=== PATIENT | female | born 1960 | race Two or more races ===

== ENCOUNTER 2020-05-15 14:27 | Emergency (ER) | payer OTHER ==
[~2020-05-15] VITALS: Ht 172.7 cm; Wt 79.4 kg
[2020-05-15] MEDS ORDERED: SODIUM CHLORIDE 0.9% 1000ML 1,000 ML IV STA (14:34)
[2020-05-15] MEDS ORDERED: ONDANSETRON HCL INJ 2MG/ML 2ML 2 MG/ML VIAL IV STA (14:34)
[2020-05-15] MEDS ORDERED: KETOROLAC TROMETHAMINE 30 MG/ML VIAL IV STA (14:34)
[2020-05-15 14:59] LABS: BASOPHILS % 0.4 % (0.0-1.0); EOSINOPHILS # (AUTO) 0.1 (0.0-0.4); EOSINOPHILS % 1.5 % (0.0-6.0); HEMATOCRIT 38.8 % (34.2-44.1); HEMOGLOBIN 12.8 g/dL (12.0-16.0); LYMPHOCYTES # (AUTO) 2.8 (1.0-3.2); LYMPHOCYTES % 41.1 % (18.0-39.1); MEAN CORPUSCULAR HEMOGLOBIN 27.1 pg (28-32); MEAN CORPUSCULAR VOLUME 82.2 fL (81-99); MONOCYTES # (AUTO) 0.4 (0.2-0.8); MONOCYTES % 6.5 % (4.4-11.3); NEUTROPHILS # (AUTO) 3.4 (2.1-6.9); NEUTROPHILS % 50.4 % (38.7-80.0); PLATELET COUNT 236 x10e3/uL (140-360); RED BLOOD COUNT 4.72 x10e6/uL (3.6-5.1); RED CELL DISTRIBUTION WIDTH 13.1 % (11.7-14.4)
[2020-05-15 15:05] LABS: CLARITY,URINE HAZY (CLEAR); COLOR,URINE YELLOW (YELLOW); KETONES,URINE TRACE (NEGATIVE); LEUKOCYTE ESTERASE ,URINE NEGATIVE (NEGATIVE); NITRITE,URINE NEGATIVE (NEGATIVE); PROTEIN,URINE DIPSTICK NEGATIVE (NEGATIVE); URINE UROBILINOGEN 0.2 mg/dL (0.2 - 1)
[2020-05-15] MEDS ORDERED: DIATRIZOATE MEGL/DIATRIZOA SOD 30 ML BTL PO ONE (15:05)
[2020-05-15 15:06] LABS: BILIRUBIN,URINE NEGATIVE (NEGATIVE); INR 0.96; PROTHROMBIN TIME 13.3 seconds (11.9-14.5)
[2020-05-15 15:07] LABS: PARTIAL THROMBOPLASTIN TIME 29.2 seconds (23.8-35.5)
[2020-05-15 15:08] LABS: BACTERIA,URINE FEW /HPF; EPITHELIAL CELLS,URINE FEW /LPF; RBC,URINE 0-5 /HPF (0-5); WBC,URINE (MAN) 0-5 /HPF (0-5)
[2020-05-15 15:15] LABS: ALANINE AMINOTRANSFERASE 15 IU/L (0-55); ALBUMIN 3.6 g/dL (3.5-5.0); ALBUMIN/GLOBULIN RATIO 1.1 (0.8-2.0); ALKALINE PHOSPHATASE 47 IU/L (40-150); ANION GAP 11.2 mmol/L (8-16); BLOOD UREA NITROGEN 16 mg/dL (7-26); BUN/CREATININE RATIO 22 (6-25); CALCIUM 8.7 mg/dL (8.4-10.2); CARBON DIOXIDE 25 mmol/L (22-29); CHLORIDE 105 mmol/L (98-107); CREATINE KINASE 99 IU/L (29-168); CREATININE, SERUM 0.73 mg/dL (0.57-1.11); EST GLOMERULAR FILTRATION RATE > 60 ML/MIN (60-); GLUCOSE 171 mg/dL (74-118); LIPASE 40 U/L (8-78); POTASSIUM 4.2 mmol/L (3.5-5.1); SODIUM 137 mmol/L (136-145)
--- NOTE | 2020-05-15 16:08 | Emergency Department Note ---
History of Present Illnes History of Present Illness Chief Complaint: Abdominal Complaints History of Present Illness This is a 59 year old female PATIENT IN FROM HOME WITH COMPLAINTS OF LEFT FLANK AND LEFT LOWER ABDOMINAL PAIN X 3 DAYS, SHORTNESS OF BREATH STARTING TODAY. PATIENT WITH COMPLAINTS OF NAUSEA, BUT NO VOMITING. RESP EVEN AND NONLABORED, APPEARS IN NO DISTRESS, AMBULATORY WITHOUT ASSISTANCE. Historian: Patient, Family Member Arrival Mode: Car Side Hemmer Required: No Onset (how long ago): day(s) (3) Location: LEFT FLANK/ABD Quality: PAIN Radiation: Reports non-radiation Severity: severe Onset quality: gradual Timing of current episode: constant Progression: worsening Chronicity: new Context: Denies recent illness Relieving factors: none Exacerbating factors: movement Associated symptoms: Reports denies other symptoms Past Medical/Family History Physician Review I have reviewed the patient's past medical and family history. Any updates have been documented here. Past Medical History Recent Fever: No Clinical Suspicion of Infectio: No New/Unexplained Change in Ment: No Past Medical History: Hyperlipedemia Past Surgical History: Hysterectomy Other Surgery: RENAL STONES DETACHED RETINA SURGERY X 2 Social History Smoking Cessation: Never Smoker Counseling Performed: No Alcohol Use: None Any Illegal Drug Use: No Other Any Pre-Existing Lines (PICC,: No Review of Systems Review of Systems Constitutional: Reports no symptoms EENTM: Reports no symptoms Cardiovascular: Reports no symptoms Respiratory: Reports no symptoms Gastrointestinal: Reports as per HPI Genitourinary: Reports no symptoms Musculoskeletal: Reports no symptoms Integumentary: Reports no symptoms Neurological: Reports no symptoms Psychological: Reports no symptoms Endocrine: Reports no symptoms Hematological/Lymphatic: Reports no symptoms Physical Exam Related Data Allergies: Coded Allergies: No Known Allergies (Unverified , 05/15/20) Triage Vital Signs Vital Signs Date Time Temp Pulse Resp B/P (MAP) Pulse Ox O2 Delivery O2 Flow Rate FiO2 05/15/20 14:40 98.0 77 16 125/75 99 Room Air Vital signs reviewed: Yes Physical Exam CONSTITUTIONAL Constitutional: Present well-developed, Present well-nourished HENT HENT: Present normocephalic, Present atraumatic, Present oropharynx clear/moist, Present nose normal HENT L/R: Present left ext ear normal, Present right ext ear normal EYES Eyes: Reports PERRL, Reports conjunctivae normal NECK Neck: Present ROM normal PULMONARY Pulmonary: Present effort normal, Present breath sounds normal CARDIOVASCULAR Cardiovascular: Present regular rhythm, Present heart sounds normal, Present capillary refill normal, Present normal rate GASTROINTESTINAL Abdominal: Present soft, Present tender (MOD TENDERNESS LLQ WITHOUT REBOUND/GAURDING), Present other (HYPOACTIVE BUT PRESENT BOWEL SOUNDS) GENITOURINARY Genitourinary: Present exam deferred SKIN Skin: Present warm, Present dry MUSCULOSKELETAL Musculoskeletal: Present ROM normal NEUROLOGICAL Neurological: Present alert, Present oriented x 3, Present no gross motor or sensory deficits PSYCHOLOGICAL Psychological: Present mood/affect normal, Present judgement normal Results Laboratory Result Diagram: 05/15/20 1436 05/15/20 1436 Laboratory Laboratory Tests Test 05/15/20 14:36 White Blood Count 6.72 x10e3/uL (4.8-10.8) Red Blood Count 4.72 x10e6/uL (3.6-5.1) Hemoglobin 12.8 g/dL (12.0-16.0) Hematocrit 38.8 % (34.2-44.1) Mean Corpuscular Volume 82.2 fL (81-99) Mean Corpuscular Hemoglobin 27.1 pg (28-32) Mean Corpuscular Hemoglobin Concent 33.0 g/dL (31-35) Red Cell Distribution Width 13.1 % (11.7-14.4) Platelet Count 236 x10e3/uL (140-360) Neutrophils (%) (Auto) 50.4 % (38.7-80.0) Lymphocytes (%) (Auto) 41.1 % (18.0-39.1) Monocytes (%) (Auto) 6.5 % (4.4-11.3) Eosinophils (%) (Auto) 1.5 % (0.0-6.0) Basophils (%) (Auto) 0.4 % (0.0-1.0) Neutrophils # (Auto) 3.4 (2.1-6.9) Lymphocytes # (Auto) 2.8 (1.0-3.2) Monocytes # (Auto) 0.4 (0.2-0.8) Eosinophils # (Auto) 0.1 (0.0-0.4) Basophils # (Auto) 0.0 (0.0-0.1) Absolute Immature Granulocyte (auto 0.01 x10e3/uL (0-0.1) Prothrombin Time 13.3 seconds (11.9-14.5) Prothromb Time International Ratio 0.96 Activated Partial Thromboplast Time 29.2 seconds (23.8-35.5) Urine Color Yellow (YELLOW) Urine Clarity Hazy (CLEAR) Urine pH 6 (5 - 7) Urine Specific Donie 1.025 (1.010-1.025) Urine Protein Negative (NEGATIVE) Urine Glucose (UA) Negative (NEGATIVE) Urine Ketones Trace (NEGATIVE) Urine Blood Trace (NEGATIVE) Urine Nitrite Negative (NEGATIVE) Urine Bilirubin Negative (NEGATIVE) Urine Urobilinogen 0.2 mg/dL (0.2 - 1) Urine Leukocyte Esterase Negative (NEGATIVE) Urine RBC 0-5 /HPF (0-5) Urine WBC 0-5 /HPF (0-5) Urine Epithelial Cells Few /LPF (NONE) Urine Bacteria Few /HPF (NONE) Sodium Level 137 mmol/L (136-145) Potassium Level 4.2 mmol/L (3.5-5.1) Chloride Level 105 mmol/L (98-107) Carbon Dioxide Level 25 mmol/L (22-29) Anion Gap 11.2 mmol/L (8-16) Blood Urea Nitrogen 16 mg/dL (7-26) Creatinine 0.73 mg/dL (0.57-1.11) Estimat Glomerular Filtration Rate > 60 ML/MIN (60-) BUN/Creatinine Ratio 22 (6-25) Glucose Level 171 mg/dL (74-118) Calcium Level 8.7 mg/dL (8.4-10.2) Total Bilirubin 0.3 mg/dL (0.2-1.2) Aspartate Amino Transf (AST/SGOT) 18 IU/L (5-34) Alanine Aminotransferase (ALT/SGPT) 15 IU/L (0-55) Alkaline Phosphatase 47 IU/L (40-150) Creatine Kinase 99 IU/L (29-168) Creatine Kinase MB 1.80 ng/mL (0-5.0) Troponin I < 0.001 ng/mL (0-0.300) B-Type Natriuretic Peptide 32.1 pg/mL (0-100) Total Protein 6.9 g/dL (6.5-8.1) Albumin 3.6 g/dL (3.5-5.0) Globulin 3.3 g/dL (2.3-3.5) Albumin/Globulin Ratio 1.1 (0.8-2.0) Lipase 40 U/L (8-78) Lab results reviewed: Yes Imaging Imaging results reviewed: Yes Procedures 12 Lead ECG Interpretation ECG Interpretation : ECG: ECG 1 Side Hemmer: Interpreted by ED physician Date: May 15, 2020 Time: 14:51 Rhythm: sinus rhythm Rate: normal (72) QRS axis: normal ST segments normal: Yes T waves normal: Yes Clinical Impression: normal ECG Assessment & Plan Medical Decision Making MDM CBC, CHEM, ECG, CARDIACS, UA/CX, CT ABD/PELVIS AND CT CHEST - R/O RENAL INSUFF, UTI, DIVERTICULITIS, STEMI/NSTEMI, PULM EMBOLISM, PNEUMONIA, SBO Reassessment Reassessment improved, DC home, F/U PCP Assessment & Plan Final Impression: (1) Abdominal pain (2) Musculoskeletal back pain Depart Disposition: HOME, SELF-CARE Last Vital Signs Date Time Temp Pulse Resp B/P (MAP) Pulse Ox O2 Delivery O2 Flow Rate FiO2 05/15/20 15:12 70 18 114/74 98 05/15/20 14:40 98.0 Room Air Medications in the ED Ondansetron HCl 4 mg ONCE STAT IV Last administered on 05/15/20at 15:00; Admin Dose 4 MG; Start 05/15/20 at 14:34; Stop 05/15/20 at 14:49; Status DC Ketorolac Tromethamine 30 mg ONCE STAT IV Last administered on 05/15/20at 15:00; Admin Dose 30 MG; Start 05/15/20 at 14:34; Stop 05/15/20 at 14:44; Status DC Sodium Chloride 1,000 ml @ 0 mls/hr Q0M STAT IV Last administered on 05/15/20at 15:00; Admin Dose 999 MLS/HR; Start 05/15/20 at 14:34; Stop 05/15/20 at 14:37; Status DC Diatrizoate Meglum/ Diatrizoate Sod 30 ml STK-MED ONCE PO ; Start 05/15/20 at 15:05; Stop 05/15/20 at 15:00; Status DC LAWRENCE MORRIS MD May 15, 2020 16:08
--- NOTE | 2020-05-15 16:44 | Diagnostic Imaging Report ---
EXAMINATION: CT of the chest with contrast, PE protocol. TECHNIQUE: Spiral CT images of the chest were performed from the lung apices through the level of the adrenal glands after the IV administration of 100 cc of Isovue 370. Thin section reconstructions were obtained with special concentration on the pulmonary arteries. Coronal and sagittal reformatted images were performed COMPARISON: <none> CLINICAL HISTORY:Shortness of breath starting today. DISCUSSION: Lungs: No filling defects are identified in the main, right or left pulmonary arteries to their segmental levels, to suggest pulmonary embolism. Mildly generalized increased attenuation of the pulmonary parenchyma. No consolidation, pulmonary nodules or masses. Airways: Major airways are clear, without endobronchial lesions. Pleura: <There is no evidence of pleural effusion or pneumothorax.> Heart and mediastinum: Thyroid is unremarkable. Heart is borderline enlarged. No pericardial effusion. Aorta is nonaneurysmal. Main pulmonary artery measures 3.2 cm. Lymph nodes: No mediastinal, hilar or axillary adenopathy. Abdomen: Please see CT abdomen and pelvis performed same date for further detail. Bones and soft tissues: No aggressive lytic or suspicious focal sclerotic lesions. Soft tissues are grossly unremarkable. IMPRESSION: 1. No CT evidence of pulmonary embolism. 2. Mildly generalized increased attenuation of the pulmonary parenchyma, likely due to scan not acquired during full inspiration. Minimal interstitial edema is a secondary consideration. No consolidation or effusion. 3. Borderline enlarged heart size. 4. Main pulmonary artery is enlarged, likely reflecting pulmonary hypertension. Signed by: Dr. Hieu Cleary M.D. on 05/15/2020 4:41 PM
--- NOTE | 2020-05-15 17:01 | Diagnostic Imaging Report ---
EXAMINATION: CT of the abdomen and pelvis with contrast. TECHNIQUE: Spiral CT images of the abdomen and pelvis were performed from the lung bases to the lesser trochanters after the intravenous administration of 100 cc of Isovue 370 and the oral administration of dilute Gastrografin. Coronal and sagittal reformatted images were obtained. COMPARISON: None. CLINICAL HISTORY:Left lower quadrant pain for 3 days. Nausea but no vomiting DISCUSSION: ABDOMEN/PELVIS: LOWER THORAX:Please see CT chest performed same day for further detail. HEPATOBILIARY: Normal hepatic size and contour. No focal hepatic lesions. No intrahepatic biliary ductal dilation. Mild dilation of the common bile duct, which measures approximately 8-9 mm at the heidi hepatis. No radiopaque intraluminal filling defects. Normal mucosa and normal tapering to the ampulla. GALLBLADDER: No radio-opaque stones or sludge. No wall thickening or pericholecystic fluid. SPLEEN: No splenomegaly. PANCREAS: No ductal dilation. Ill defined 5-6 mm hypodense lesion in the proximal pancreatic body (series 6, image 20 ), which measures fluid density. No other focal lesions. ADRENALS: No adrenal nodules. KIDNEYS/URETERS: No renal or ureteral calculi, hydronephrosis or obstruction. Mild dilation of the distal aspect of the left ureter (best visualized on coronal image 60), with presence of an intraluminal thin-walled fluid density structure at the UVJ, which measures approximately 2.0 x 1.3 cm (series 6, image 92 and coronal image 54). No solid enhancing masses. PELVIC ORGANS/BLADDER: No bladder calculi or wall thickening. Uterus is absent. No adnexal masses. PERITONEUM/RETROPERITONEUM: No free air or fluid. LYMPH NODES: No intra-abdominal, retroperitoneal, pelvic or inguinal lymphadenopathy. VESSELS: The celiac trunk,superior and inferior mesenteric and bilateral renal arteries are patent The portal, superior mesenteric and splenic veins are patent. GI TRACT: No bowel dilation or evidence of obstruction. No pericolonic inflammatory changes. Appendix is well identified and normal in caliber. No diverticulosis or diverticulitis. Small bowel and stomach are unremarkable. BONES AND SOFT TISSUE: No aggressive lytic or suspicious focal sclerotic lesions. Mildly degenerated discs in the lumbar spine, predominantly at L1-L2 and L2-L3 with associated mild S shaped curvature of the thoracolumbar spine. Soft tissues are grossly unremarkable. IMPRESSION: 1. No acute abdominopelvic abnormalities. Specifically, no diverticulosis or diverticulitis. 2. Findings in the distal left ureter at the UVJ most likely represent a ureterocele.1 no focal solid mass is identified. No hydronephrosis. Urology evaluation would be helpful. 3. Mild dilation of the common bile duct. No intraluminal filling defects. No cholelithiasis. Consider MRI abdomen/MRCP if there is clinical concern for choledocholithiasis. 4. Ill-defined 5-6 mm fluid density lesion in the proximal pancreatic body, which may represent a small sidebranch IPMN and less likely a pseudocyst (if there is a prior history of pancreatitis). This can be assessed with above-mentioned MRI abdomen/MRCP. Signed by: Dr. Hieu Cleary M.D. on 05/15/2020 4:57 PM
[2020-05-15] MEDS ORDERED: IOPAMIDOL 370 MG/ML 200 ML INFUS..BTL INJ ONE (20:04)
[2020-05-15] MEDS ORDERED: SODIUM CHLORIDE 0.9% 50ML 50 ML ONE (20:04)
== END 2020-05-15 16:30 | disposition home or self-care (01) ==
LOC: ER 16:10
DX: R10.32 Left lower quadrant pain (principal); M54.5 Low back pain; E78.5 Hyperlipidemia, unspecified
CPT/HCPCS: 36415; 71260; 74177; 80053; 81001; 82550; 82553; 83690; 83880; 84484; 85025; 85610; 85730; 87086; 93005; 99284; J1885; J2405; J7030; Q9967